=== PATIENT | male | born 1990 | race Caucasian/White ===

== ENCOUNTER 2023-08-12 14:05 | Inpatient (IN) | payer OTHER ==
[2023-08-12] MEDS ORDERED: morphine CARPU-JECT 4 MG/1 ML DISP.SYRIN IVPUSH ONE ×2 (14:51→17:29)
[2023-08-12] MEDS ORDERED: morphine SULFATE 4 MG/ML VIAL ONE ×2 (14:53→17:32)
[2023-08-12] MEDS ORDERED: ONDANSETRON 4 MG/2 ML VIAL ONE (14:53)
[2023-08-12] MEDS ORDERED: ONDANSETRON 4 MG/2 ML VIAL IVPB ONE (14:54)
[2023-08-12 15:34] LABS: BASO % 0.3 % (0-2.0); HEMATOCRIT 50.5 % (35.4-49); HEMOGLOBIN 16.9 GM/dL (11.7-16.9); MCH 31.6 pg (25.7-33.7); MCHC 33.5 g/dl (32.0-35.9); MEAN CELL VOLUME 94.2 fl (80-96); MEAN PLT VOLUME 7.4 fl (7.5-11.1); MONO % 4.7 % (3.8-10.2); PLATELET COUNT 351 10^3/uL (134-434); RBC 5.36 M/mm3 (4.00-5.60); RDW 12.1 % (11.9-15.9); WHITE BLOOD COUNT 11.7 K/mm3 (4.0-10.0)
[2023-08-12 15:44] LABS: INR 1.07 (0.83-1.09); PROTHROMBIN TIME (PATIENT) 12.4 SEC (9.7-13.0)
[2023-08-12 15:46] LABS: ACTIVATED PTT 30.1 SECONDS (25.2-36.5)
[2023-08-12 15:54] LABS: POTASSIUM 3.8 mmol/L (3.5-5.1)
[2023-08-12 15:56] LABS: CALCIUM 9.6 mg/dL (8.5-10.1)
[2023-08-12 16:00] LABS: CREATININE 0.8 mg/dL (0.55-1.3)
[2023-08-12 16:01] LABS: BILIRUBIN,TOTAL 1.8 mg/dL (0.2-1)
[2023-08-12 16:02] LABS: TOT PROT 8.1 g/dl (6.4-8.2)
[2023-08-12] MEDS ORDERED: SODIUM CHLORIDE 0.9% 500 ML INFUS.BAG IV ONE (17:11)
[2023-08-12] MEDS ORDERED: ONDANSETRON 4 MG/2 ML VIAL IVPUSH PRN (19:58)
[2023-08-12] MEDS ORDERED: LACTATED RINGERS SOLUTION 1,000 ML/1,000 ML INFUS.BAG IV SCH (20:00)
[2023-08-12 20:15] LABS: BILIRUBIN,DIRECT 0.7 mg/dL (0.0-0.2)
[2023-08-12 20:22] LABS: URINE APPEARANCE CLEAR; URINE BILIRUBIN NEGATIVE (NEGATIVE); URINE COLOR YELLOW; URINE GLUCOSE (UA) NEGATIVE (NEGATIVE); URINE KETONE 3+ (NEGATIVE); URINE LEUK ESTERASE NEGATIVE (NEGATIVE); URINE NITRITE NEGATIVE (NEGATIVE); URINE PROTEIN NEGATIVE (NEGATIVE)
[2023-08-12] MEDS: LACTATED RINGERS SOLUTION 1,000 ML/1,000 ML INFUS.BAG IV SCH (20:41)
[2023-08-13] MEDS: LACTATED RINGERS SOLUTION 1,000 ML/1,000 ML INFUS.BAG IV SCH ×2 (02:32→10:44)
[2023-08-13 09:56] LABS: BASO % 0.1 % (0-2.0); EOS % 0.1 % (0-4.5); HEMATOCRIT 45.9 % (35.4-49); HEMOGLOBIN 15.6 GM/dL (11.7-16.9); LYMPH % 4.7 % (8-40); MCH 32.2 pg (25.7-33.7); MEAN CELL VOLUME 94.5 fl (80-96); MEAN PLT VOLUME 7.6 fl (7.5-11.1); MONO % 6.6 % (3.8-10.2); NEUT % 88.5 % (42.8-82.8); PLATELET COUNT 302 10^3/uL (134-434); RBC 4.86 M/mm3 (4.00-5.60); WHITE BLOOD COUNT 15.4 K/mm3 (4.0-10.0)
[2023-08-13 10:17] LABS: ALBUMIN 3.5 g/dl (3.4-5.0); BLOOD UREA NITROGEN 7.3 mg/dL (7-18); MAGNESIUM 1.8 mg/dL (1.8-2.4)
[2023-08-13 10:19] LABS: CREATININE 0.6 mg/dL (0.55-1.3); PHOSPHOROUS 2.3 mg/dL (2.5-4.9)
[2023-08-13 10:20] LABS: BILIRUBIN,DIRECT 0.7 mg/dL (0.0-0.2)
[2023-08-13] MEDS: ENOXAPARIN NA (PORCINE) 40 MG/0.4 ML DISP.SYRIN SQ SCH (10:21)
[2023-08-13 10:22] LABS: BILIRUBIN,TOTAL 1.8 mg/dL (0.2-1); TOT PROT 6.9 g/dl (6.4-8.2)
[2023-08-13 10:23] LABS: CALCIUM 8.1 mg/dL (8.5-10.1)
[2023-08-13] MEDS: KCL 10 MEQ IVPB 10 MEQ/100 ML INFUS.BAG IVPB SCH ×2 (11:43→13:29)
[2023-08-13] MEDS ORDERED: LORazepam 2 MG/ML SDV VIAL IVPUSH PRN (17:10)
[2023-08-14] MEDS: LACTATED RINGERS SOLUTION 1,000 ML/1,000 ML INFUS.BAG IV SCH ×5 (01:59→23:00)
[2023-08-14 09:19] LABS: BASO % 0.1 % (0-2.0); EOS % 0.1 % (0-4.5); HEMATOCRIT 44.9 % (35.4-49); HEMOGLOBIN 14.9 GM/dL (11.7-16.9); LYMPH % 5.3 % (8-40); MCH 31.5 pg (25.7-33.7); MCHC 33.2 g/dl (32.0-35.9); MEAN CELL VOLUME 94.8 fl (80-96); MEAN PLT VOLUME 7.8 fl (7.5-11.1); MONO % 7.3 % (3.8-10.2); NEUT % 87.2 % (42.8-82.8); PLATELET COUNT 284 10^3/uL (134-434); RBC 4.73 M/mm3 (4.00-5.60); RDW 12.5 % (11.9-15.9); WHITE BLOOD COUNT 17.9 K/mm3 (4.0-10.0)
[2023-08-14 09:25] LABS: INR 1.19 (0.83-1.09); PROTHROMBIN TIME (PATIENT) 13.8 SEC (9.7-13.0)
[2023-08-14 09:45] LABS: BLOOD UREA NITROGEN 8.7 mg/dL (7-18)
[2023-08-14 09:48] LABS: ALBUMIN 3.1 g/dl (3.4-5.0); CALCIUM 7.9 mg/dL (8.5-10.1); MAGNESIUM 1.9 mg/dL (1.8-2.4)
[2023-08-14 09:51] LABS: CREATININE 0.6 mg/dL (0.55-1.3)
[2023-08-14 09:52] LABS: BILIRUBIN,TOTAL 2.1 mg/dL (0.2-1); TOT PROT 6.7 g/dl (6.4-8.2)
[2023-08-14] MEDS: ENOXAPARIN NA (PORCINE) 40 MG/0.4 ML DISP.SYRIN SQ SCH (10:17)
[2023-08-14] MEDS: KCL 10 MEQ IVPB 10 MEQ/100 ML INFUS.BAG IVPB SCH ×3 (12:52→15:10)
[2023-08-14 15:35] VITALS: BMI 31.9
[2023-08-14] MEDS: FOLIC ACID 1 MG TABLET (FP) PO SCH (18:46)
[2023-08-14] MEDS: THIAMINE HCL 100 MG TABLET (FP) PO SCH (18:46)
[2023-08-14] MEDS ORDERED: POTASSIUM CHLORIDE ORAL LIQUID 20 MEQ/15 ML PO SCH (22:00)
[2023-08-15] MEDS: LACTATED RINGERS SOLUTION 1,000 ML/1,000 ML INFUS.BAG IV SCH ×4 (01:00→12:17)
[2023-08-15 08:32] LABS: BASO % 0.3 % (0-2.0); EOS % 0.4 % (0-4.5); HEMOGLOBIN 14.5 GM/dL (11.7-16.9); MCH 31.8 pg (25.7-33.7); MCHC 33.7 g/dl (32.0-35.9); MEAN CELL VOLUME 94.3 fl (80-96); MEAN PLT VOLUME 7.9 fl (7.5-11.1); MONO % 9.1 % (3.8-10.2); NEUT % 81.2 % (42.8-82.8); PLATELET COUNT 301 10^3/uL (134-434); RBC 4.56 M/mm3 (4.00-5.60); RDW 12.2 % (11.9-15.9); WHITE BLOOD COUNT 15.6 K/mm3 (4.0-10.0)
[2023-08-15 08:40] LABS: POTASSIUM 3.2 mmol/L (3.5-5.1)
[2023-08-15 08:43] LABS: CALCIUM 8.5 mg/dL (8.5-10.1)
[2023-08-15 08:44] LABS: BLOOD UREA NITROGEN 5.3 mg/dL (7-18); MAGNESIUM 1.8 mg/dL (1.8-2.4)
[2023-08-15 08:47] LABS: CREATININE 0.6 mg/dL (0.55-1.3)
[2023-08-15 08:48] LABS: TOT PROT 6.6 g/dl (6.4-8.2)
[2023-08-15 08:49] LABS: BILIRUBIN,TOTAL 1.3 mg/dL (0.2-1)
[2023-08-15] MEDS: FOLIC ACID 1 MG TABLET (FP) PO SCH (10:22)
[2023-08-15] MEDS: POTASSIUM CHLORIDE ORAL LIQUID 20 MEQ/15 ML PO SCH ×3 (10:22→21:04)
[2023-08-15] MEDS: THIAMINE HCL 100 MG TABLET (FP) PO SCH (10:22)
[2023-08-15] MEDS: ENOXAPARIN NA (PORCINE) 40 MG/0.4 ML DISP.SYRIN SQ SCH (10:22)
[2023-08-16] MEDS: LACTATED RINGERS SOLUTION 1,000 ML/1,000 ML INFUS.BAG IV SCH (01:56)
[2023-08-16 09:06] VITALS: PULSE 80; RESP 19; TEMP 98.9
[2023-08-16 09:49] LABS: BASO % 0.5 % (0-2.0); EOS % 1.5 % (0-4.5); HEMATOCRIT 45.4 % (35.4-49); HEMOGLOBIN 15.3 GM/dL (11.7-16.9); LYMPH % 9.6 % (8-40); MCH 31.9 pg (25.7-33.7); MCHC 33.8 g/dl (32.0-35.9); MEAN CELL VOLUME 94.4 fl (80-96); MEAN PLT VOLUME 7.5 fl (7.5-11.1); MONO % 10.5 % (3.8-10.2); NEUT % 77.9 % (42.8-82.8); PLATELET COUNT 353 10^3/uL (134-434); RBC 4.81 M/mm3 (4.00-5.60); RDW 12.3 % (11.9-15.9)
[2023-08-16 09:51] LABS: INR 1.11 (0.83-1.09); PROTHROMBIN TIME (PATIENT) 12.9 SEC (9.7-13.0)
[2023-08-16] MEDS: ENOXAPARIN NA (PORCINE) 40 MG/0.4 ML DISP.SYRIN SQ SCH (09:53)
[2023-08-16] MEDS: THIAMINE HCL 100 MG TABLET (FP) PO SCH (09:53)
[2023-08-16] MEDS: FOLIC ACID 1 MG TABLET (FP) PO SCH (09:53)
[2023-08-16 10:11] LABS: POTASSIUM 3.1 mmol/L (3.5-5.1)
[2023-08-16 10:16] LABS: ALBUMIN 3.1 g/dl (3.4-5.0); BLOOD UREA NITROGEN 8.9 mg/dL (7-18); MAGNESIUM 1.7 mg/dL (1.8-2.4)
[2023-08-16 10:19] LABS: CREATININE 0.6 mg/dL (0.55-1.3)
[2023-08-16 10:20] LABS: BILIRUBIN,TOTAL 1.1 mg/dL (0.2-1); TOT PROT 7.1 g/dl (6.4-8.2)
[2023-08-16 10:24] LABS: CALCIUM 9.8 mg/dL (8.5-10.1)
[2023-08-16] MEDS ORDERED: amLODIPine BESYLATE 5 MG TABLET (FP) PO SCH (10:45)
[2023-08-16 13:15] VITALS: BP 138/78
== END 2023-08-16 11:46 | disposition home or self-care (01) | DRG 282 ==
LOC: JER 14:05 → JERBED 17:37 → J8W 23:00 → J7W 08-13 23:30 → J5S 08-15 16:43
PROVIDERS: ADMIT Internal Medicine; ATTEND Nurse Practitioner Acute Care
DX: K85.20 Alcohol induced acute pancreatitis without necrosis or infection (principal); R74.01 Elevation of levels of liver transaminase levels; F10.10 Alcohol abuse, uncomplicated; F17.210 Nicotine dependence, cigarettes, uncomplicated; K76.0 Fatty (change of) liver, not elsewhere classified; K70.10 Alcoholic hepatitis without ascites
CPT/HCPCS: 36415; 71045-TC-FY; 74177-TC; 76705-TC; 80048; 80053; 80061; 80076; 81003; 82150; 82248; 83615; 83690; 83735; 84100; 84484; 85025; 85610; 85730; 86140; 86850; 86900; 86901; 87040; 87086; 93005; 93010; 94010; 99285-25; Q9967